=== PATIENT | male | born 1995 | race Caucasian/White ===

== ENCOUNTER 2017-01-31 02:45 | Emergency (ER) | payer BC, OTHER ==
[~2017-01-31] VITALS: Ht 177.8 cm; Wt 76.7 kg
[2017-01-31 02:52] VITALS: TEMP 36.6; Ht 177.8 cm; Wt 76.7 kg
--- NOTE | 2017-01-31 07:47 | EMERGENCY ROOM VISIT NOTE ---
History Report prepared by Ander: Florinda Hanson Under the Supervision of: Dr. Candida Zheng D.O. 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 The patient's friend provides the history. The patient had been drinking alcohol throughout the day. He was wrestling with someone in the hallway of their residence when he hit his head against the ground. He did lose consciousness for a couple seconds. He sat down on the couch and was rambling. His friend was not sure if he was drunk or if it was a result of the head injury. Around 10 minutes later he started vomiting. He did have a nose bleed. The history is limited due to the patient's intoxication. 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 Past Medical & Surgical Unobtainable due to intoxication. Family History No pertinent family history stated. Social History Smoking Status: Never Smoker Occupation Status: student Current/Historical Medications No Active Prescriptions or Reported Meds Allergies Coded Allergies: No Known Allergies (Unverified , 01/31/17) Physical Exam Vital Signs Date Time Temp Pulse Resp B/P (MAP) Pulse Ox O2 Delivery O2 Flow Rate FiO2 01/31/17 08:25 80 14 116/74 93 01/31/17 06:34 81 14 114/63 93 Room Air 01/31/17 04:56 87 16 121/71 94 Room Air 01/31/17 02:52 36.6 115 18 138/84 96 Room Air Physical Exam GENERAL: somnolent, well nourished, no distress, non-toxic HEAD: normocephalic, atraumatic. No evidence of head trauma. EYE EXAM: normal conjunctiva, PERRL and EOM's grossly intact OROPHARYNX: no exudate, no erythema, lips, buccal mucosa, and tongue normal and mucous membranes are moist; no epistaxis NECK: supple, no nuchal rigidity, no adenopathy, non-tender, no midline step off LUNGS: Clear to auscultation. Normal chest wall mechanics, no w/r/r HEART: no murmurs, S1 normal and S2 normal, no crepitus/ecchymosis ABDOMEN: abdomen soft, non-tender, normo-active bowel sounds, no masses, no rebound or guarding. BACK: Back is symmetrical on inspection and there is no deformity, no midline tenderness, no CVA tenderness. SKIN: no rashes and no bruising EXTREMITIES: Normal ROM. No deformity. Normal pulses. NEURO EXAM: Normal sensorium, cranial nerves II-XII grossly intact, normal speech, no gross weakness of arms, no gross weakness of legs. Medical Decision & Procedures ER Provider Diagnostic Interpretation: Radiology results have been interpreted by the [facility] radiologist and reviewed by me. CT Head: Impression: No acute intracranial finding. Severe sinus disease of the maxillary sinuses, subtotal opacification on the right and retention cysts versus polyps on the left Comment: Ventricles, sulci and cisterns are normal No midline shift No intracranial parenchymal hemorrhage No extra-axial fluid collection Posterior fossa is normal No calvarial fracture ED Course 0447: The patient was evaluated in room C7. A complete history and physical exam was performed. 0627: I reevaluated the patient. He is sleeping. Vital signs stable. 0720: I reevaluated the patient. He wakes up and answers questions appropriately. He does not remember the events that led up to his ED visit. He denies having any pain. Patient moving all extremities, vital signs stable. Patient updated on the results. Patient clinically sober at this time. Medical Decision Differential diagnosis includes etiologies such as alcohol intoxication, toxicologic, infection, hypoglycemia, electrolyte abnormalities, cardiac sources , intracerebral event, neurologic, skull fracture, concussion, as well as others were entertained. Patient likely with incidental closed head injury following the episode of wrestling later today after consuming alcohol earlier. No evidence of contusion or laceration. No other evidence of trauma. Patient reexamined upon sobriety had no other complaints, and denied headache/dizziness/vision changes. Patient tolerating by mouth well at bedside, able to ambulate with steady gait. Have a low suspicion for any additional traumatic injury, doubt intracranial hemorrhage, doubt CVA, doubt occult infectious etiology, doubt electrolyte abnormality. Pt well appearing by time of discharge. Head Trauma GCS Score: 15 Medication Reconcilliation Current Medication List: was personally reviewed by me Blood Pressure Screening Patient's blood pressure: Normal blood pressure Impression Primary Impression: Closed head injury Additional Impressions: Concussion Alcohol use Scribe Attestation The scribe's documentation has been prepared under my direction and personally reviewed by me in its entirety. I confirm that the note above accurately reflects all work, treatment, procedures, and medical decision making performed by me. Departure Information Dispostion Home / Self-Care Prescriptions No Active Prescriptions or Reported Meds Referrals No Doctor, Assigned (PCP) Patient Instructions My [facility] Additional Instructions Please do not drink until you're age 21 when his legal. If you choose to drink please drink responsibly notice if location. Do not drink and drive. Please monitor for any additional signs of a concussion including persistent headache, nausea or vomiting, difficulty concentrating, general fatigue. If you have any other new or concerning symptoms, develop dizziness, neck or back pain, chest pain or trouble breathing, fevers, vision changes, or have other new concerns please return the emergency room. He may eat and drink normally. Please avoid any activity or sports or you could sustain another head injury for at least a week after your symptoms have resolved. Problem Qualifiers Primary Impression: Closed head injury Encounter type: initial encounter Qualified Codes: S09.90XA - Unspecified injury of head, initial encounter Additional Impressions: Concussion Encounter type: initial encounter Loss of consciousness presence/duration: with LOC of 30 min or less Qualified Codes: S06.0X1A - Concussion with loss of consciousness of 30 minutes or less, initial encounter
[2017-01-31 08:25] VITALS: BP 116/74; PULSE 80; O2SAT 93
--- NOTE | 2017-01-31 09:05 | DIAGNOSTIC IMAGING REPORT ---
CT HEAD WITHOUT CONTRAST (CT) CLINICAL HISTORY: Head pain. Head trauma. Ethanol intoxication. COMPARISON STUDY: No previous studies for comparison. TECHNIQUE: Axial CT of the brain is performed from the vertex to the skull base. IV contrast was not administered for this examination. A dose lowering technique was utilized adhering to the principles of ALARA. CT DOSE: 614.27 mGy.cm FINDINGS: No intra or extra-axial mass lesions are visualized. There is no CT evidence of acute cortical infarction. There is no evidence of midline shift. There is no acute hemorrhage. No calvarial fractures are visualized. There is no evidence of pathologic ventricular dilatation. There is extensive mucosal thickening involving the right maxilla sinus. Prominent left maxilla sinus inflammatory polyp/retention cysts are visualized. IMPRESSION: 1. Extensive maxilla sinus mucosal disease 2. No acute intracranial findings. Electronically signed by: Shane Cedeno M.D. 01/31/2017 9:04 AM Dictated Date/Time: 01/31/2017 9:02 AM
== END 2017-01-31 08:25 | disposition home or self-care (01) ==
LOC: C.EDB 02:48 → C.EDC 08:25
DX: S06.0X1A Concussion with loss of consciousness of 30 minutes or less, initial encounter (principal); W22.09XA Striking against other stationary object, initial encounter; Y93.83 Activity, rough housing and horseplay; Y92.009 Unspecified place in unspecified non-institutional (private) residence as the place of occurrence of the external cause; F10.929 Alcohol use, unspecified with intoxication, unspecified; Y90.9 Presence of alcohol in blood, level not specified